=== PATIENT | male | born 1985 | race Two or more races ===

== ENCOUNTER 2018-07-21 11:43 | Emergency (ER) | payer SELFPAY ==
[~2018-07-21] VITALS: Ht 172.7 cm; Wt 72.6 kg
[2018-07-21 11:52] VITALS: BP 167/89
[2018-07-21 11:53] VITALS: BP 122/56
--- NOTE | 2018-07-21 11:53 | NUR ---
ED Nurse Note: pt was brought in to ER by ambulance due to abdominal pain 02/22. pt was picked up from the street but per pt, aao x4, pt has apartment and living with girlfriend. skin clean and intact.
[2018-07-21 12:48] LABS: BASOPHILS % (AUTO) 0.8 % (0.0-2.0); EOSINOPHILS % (AUTO) 0.2 % (0.0-3.0); HEMATOCRIT 47.3 % (42.0-52.0); LYMPHOCYTES % (AUTO) 14.3 % (20.0-45.0); MEAN CORPUSCULAR VOLUME 92 FL (80-99); MONOCYTES % (AUTO) 7.4 % (1.0-10.0); NEUTROPHILS % (AUTO) 77.3 % (45.0-75.0); PLATELET COUNT 130 K/UL (150-450); RED BLOOD COUNT 5.15 M/UL (4.70-6.10); RED CELL DISTRIBUTION WIDTH 12.6 % (11.6-14.8); WHITE BLOOD COUNT 4.8 K/UL (4.8-10.8)
[2018-07-21 12:51] LABS: APPEARANCE,URINE CLEAR; BILIRUBIN, URINE NEGATIVE (NEGATIVE); GLUCOSE, URINE (UA) NEGATIVE (NEGATIVE); KETONES,URINE 3+ (NEGATIVE); LEUKOCYTE ESTERASE ,URINE 1+ (NEGATIVE); NITRITE,URINE NEGATIVE (NEGATIVE); PH,URINE 8 (4.5-8.0); PROTEIN,URINE 1+ (NEGATIVE); UROBILINOGEN,URINE NORMAL MG/DL (0.0-1.0)
[2018-07-21 12:53] LABS: COLOR,URINE YELLOW
[2018-07-21 12:59] LABS: ANION GAP 12 mmol/L (5-15); BLOOD UREA NITROGEN 13 mg/dL (7-18); CALCIUM 9.9 MG/DL (8.5-10.1); CARBON DIOXIDE 28 MMOL/L (21-32); CHLORIDE 102 MMOL/L (98-107); CREATININE 0.7 MG/DL (0.55-1.30); POTASSIUM 3.4 MMOL/L (3.5-5.1); SODIUM 142 MMOL/L (136-145)
[2018-07-21 13:10] LABS: ALANINE AMINOTRANSFERASE 43 U/L (12-78); ALBUMIN 4.4 G/DL (3.4-5.0); ALBUMIN/GLOBULIN RATIO 1.3 (1.0-2.7); ALKALINE PHOSPHATASE 70 U/L (46-116); ASPARTATE AMINO TRANSFERASE 30 U/L (15-37); BILIRUBIN,TOTAL 1.5 MG/DL (0.2-1.0)
[2018-07-21 13:15] LABS: BILIRUBIN,DIRECT 0.3 MG/DL (0.0-0.3)
[2018-07-21] MEDS ORDERED: cloNIDine 0.2mg Tab ORAL ONE (13:30)
[2018-07-21 13:41] VITALS: BP 126/57
--- NOTE | 2018-07-21 15:09 | Emergency Room Report ---
History of Present Illness General Chief Complaint: Abdominal Pain Source: Patient Present Illness HPI This patient presents with opioid withdrawal. The patient states that he uses IV fentanyl. He states that he was using IV fentanyl this morning. He then subsequently took Suboxone and immediately he developed nausea, vomiting, diarrhea, restlessness and yawning. Patient states that he had been on methadone and is on a treatment rehabilitation program. He had just recently transitioned to Suboxone. He does continue to shoot up IV fentanyl. Allergies: Coded Allergies: No Known Allergies (Unverified , 07/21/18) Patient History Past Medical History: none, see triage record Social History: Reports: drug use - IV fentanyl; Denies: smoking, alcohol use Reviewed Nursing Documentation: PMH: Agreed; PSxH: Agreed Nursing Documentation-PMH Past Medical History: No History, Except For History Of Psychiatric Problem: Yes - Depression Review of Systems All Other Systems: negative except mentioned in HPI Physical Exam Vital Signs Date Time Temp Pulse Resp B/P (MAP) Pulse Ox O2 Delivery O2 Flow Rate FiO2 07/21/18 11:49 98.4 96 18 154/68 99 Room Air Sp02 EP Interpretation: reviewed, normal General Appearance: no apparent distress, alert, GCS 15, non-toxic, other - Restless, yawning Head: normocephalic, atraumatic Eyes: bilateral eye PERRL, bilateral eye abnormal pupil - Bilateral mydriasis ENT: hearing grossly normal, normal pharynx, no angioedema, normal voice Neck: full range of motion, supple/symm/no masses Respiratory: chest non-tender, lungs clear, normal breath sounds, no respiratory distress, no retraction, no accessory muscle use, speaking full sentences Cardiovascular #1: regular rate, rhythm, no edema Gastrointestinal: normal bowel sounds, non tender, soft, non-distended, no guarding, no rebound Rectal: deferred Musculoskeletal: back normal, gait/station normal, normal range of motion, non- tender Neurologic: alert, oriented x3, responsive, motor strength/tone normal, sensory intact, speech normal Psychiatric: judgement/insight normal, memory normal, mood/affect normal, no suicidal/homicidal ideation Skin: normal color, no rash, warm/dry, well hydrated Medical Decision Making Diagnostic Impression: Primary Impression: Opioid withdrawal ER Course This patient is an opioid withdrawal. This is iatrogenic with Suboxone. The patient does have nausea, vomiting, diarrhea, restlessness and yelling. However he is hemodynamically stable. He was given IM Phenergan and oral clonidine for symptomatic relief. He continued to be significantly symptomatic. He was given oral methadone. He is instructed to follow-up with his rehabilitation program for further treatment. The patient has ongoing opioid use. He just this morning injected IV fentanyl. The patient states that he can go check in to the rehabilitation program when he is discharged here. I did give him oral methadone prior to discharge. He was educated on the dangers of opiate abuse and illicit use. She was instructed to go immediately over to the rehabilitation program clinic. He indicated that he intended to do so. The patient is given return precautions and follow-up instructions. Laboratory Tests Test 07/21/18 12:40 White Blood Count 4.8 K/UL (4.8-10.8) Red Blood Count 5.15 M/UL (4.70-6.10) Hemoglobin 16.0 G/DL (14.2-18.0) Hematocrit 47.3 % (42.0-52.0) Mean Corpuscular Volume 92 FL (80-99) Mean Corpuscular Hemoglobin 31.0 PG (27.0-31.0) Mean Corpuscular Hemoglobin Concent 33.8 G/DL (32.0-36.0) Red Cell Distribution Width 12.6 % (11.6-14.8) Platelet Count 130 K/UL (150-450) L Mean Platelet Volume 9.2 FL (6.5-10.1) Neutrophils (%) (Auto) 77.3 % (45.0-75.0) H Lymphocytes (%) (Auto) 14.3 % (20.0-45.0) L Monocytes (%) (Auto) 7.4 % (1.0-10.0) Eosinophils (%) (Auto) 0.2 % (0.0-3.0) Basophils (%) (Auto) 0.8 % (0.0-2.0) Urine Color Yellow Urine Appearance Clear Urine pH 8 (4.5-8.0) Urine Specific [place] 1.010 (1.005-1.035) Urine Protein 1+ (NEGATIVE) H Urine Glucose (UA) Negative (NEGATIVE) Urine Ketones 3+ (NEGATIVE) H Urine Blood Negative (NEGATIVE) Urine Nitrite Negative (NEGATIVE) Urine Bilirubin Negative (NEGATIVE) Urine Urobilinogen Normal MG/DL (0.0-1.0) Urine Leukocyte Esterase 1+ (NEGATIVE) H Urine RBC 0 /HPF (0 - 0) Urine WBC 2-4 /HPF (0 - 0) Urine Squamous Epithelial Cells Occasional /LPF Urine Bacteria Occasional /HPF (NONE) Urine Mucus Few /LPF (NONE/OCC) H Sodium Level 142 MMOL/L (136-145) Potassium Level 3.4 MMOL/L (3.5-5.1) L Chloride Level 102 MMOL/L (98-107) Carbon Dioxide Level 28 MMOL/L (21-32) Anion Gap 12 mmol/L (5-15) Blood Urea Nitrogen 13 mg/dL (7-18) Creatinine 0.7 MG/DL (0.55-1.30) Estimate Glomerular Filtration Rate > 60 mL/min (>60) Glucose Level 110 MG/DL (74-106) H Calcium Level 9.9 MG/DL (8.5-10.1) Total Bilirubin 1.5 MG/DL (0.2-1.0) H Direct Bilirubin 0.3 MG/DL (0.0-0.3) Aspartate Amino Transferase (AST) 30 U/L (15-37) Alanine Aminotransferase (ALT) 43 U/L (12-78) Alkaline Phosphatase 70 U/L (46-116) Total Protein 7.8 G/DL (6.4-8.2) Albumin 4.4 G/DL (3.4-5.0) Globulin 3.4 g/dL Albumin/Globulin Ratio 1.3 (1.0-2.7) Lipase 242 U/L (73-393) Urine Opiates Screen Positive (NEGATIVE) H Urine Barbiturates Screen Negative (NEGATIVE) Phencyclidine (PCP) Screen Negative (NEGATIVE) Urine Amphetamines Screen Negative (NEGATIVE) Urine Benzodiazepines Screen Negative (NEGATIVE) Urine Cocaine Screen Positive (NEGATIVE) H Urine Marijuana (THC) Screen Negative (NEGATIVE) Last Vital Signs Date Time Temp Pulse Resp B/P (MAP) Pulse Ox O2 Delivery O2 Flow Rate FiO2 07/21/18 13:41 98.0 74 19 126/57 100 Room Air Status: improved Disposition: HOME, SELF-CARE Condition: Improved Romina Jennings DO Jul 21, 2018 15:09
--- NOTE | 2018-07-21 15:20 | NUR ---
ER DISCHARGE NOTE: Patient is cleared to be discharged per ERMD, pt is aox4, on room air, with stable vital signs. pt was given dc and prescription instructions, pt was able to verbalize understanding, pt id band and iv site removed without complications. pt is able to ambulate with steady gait. pt took all belongings.
[2018-07-21 15:23] VITALS: BP 124/62
[2018-07-21 15:24] VITALS: BP 124/62
== END 2018-07-21 15:24 | disposition home or self-care (01) ==
LOC: EDBD 11:43 → EMR 15:00
DX: F11.23 Opioid dependence with withdrawal (principal); R11.2 Nausea with vomiting, unspecified; R19.7 Diarrhea, unspecified; R45.1 Restlessness and agitation
CPT/HCPCS: 36415; 80053; 80307; 81003; 82248; 82270; 83690; 85025; 87045; 96361; 96372; 96374; 99284; J2405; J2550